=== PATIENT | female | born 1975 | race African-American/Black ===

== ENCOUNTER 2019-07-27 02:33 | Inpatient (IN) | payer OTHER, SELFPAY ==
[2019-07-27] VITALS (17 sets, daily range): BP systolic 113–180; BP diastolic 65–100; PULSE 74–122; RESP 11–21; TEMP 36.4–38.4; O2SAT 93–100; BMI 38.2
--- NOTE | ~2019-07-27 | CT_ITS ---
EXAMINATION: CT abdomen pelvis w con DATE: 07/27/2019 04:15 INDICATION: Right-sided abdominal pain TECHNIQUE: Computed tomography (CT) of the abdomen and pelvis was performed with 100 cc Omnipaque 350 intravenous contrast. The dose-length product was 1246.52 mGy-cm. Automated exposure control and ite rative reconstruction technique were employed. COMPARISON: None. FINDINGS: The appendix is thickened measuring 11 mm with moderate surrounding phlegmonous change, con sistent with acute appendicitis. Appendix located lateral to the cecum. No evidence for perforation. There Lung bases are unremarkable. Heart size normal. No significant pleural or pericardial effusion. Fatty infiltration of the liver. There are gallstones. Spleen is unremarkable. There is accessory splenule s. The pancreas, adrenal glands and kidneys are unremarkable. Nonobstructive bowel gas pattern. There is a dominant right ovarian follicle. No free air. IMPRESSION: 1. Acute uncomplicated appendicitis. 2: Cholelithiasis. Reviewed, dictated and finalized at location A.
--- NOTE | 2019-07-27 02:53 | ED.ABDPAIN ---
HPI - Abdominal Pain General Chief Complaint: Abdominal Pain Stated Complaint: abd pain Time Seen by Provider: 07/27/19 02:46 Source: patient Mode of arrival: ambulatory Limitations: no limitations History of Present Illness HPI narrative: This patient is a 44 year old female who presents for evaluation of lower abominal pain . She states she developed lower abdominal with nausea and vomiting after eating at a restaurant on Sunday night. She describes her pain has cramping like menstrual cycle but worse. She had 2 episodes of vomiting on Sunday and she has continued to have nausea. She had diarrhea on Sunday as well. She has taken pepto bismal without relief of her symptoms. She was thinking it was due to some food she ate but the pain is getting worsen. She denies similar pain in the past. She also denies urinary complaints. MD elicited complaint: abdominal pain Related Data Home Medications Medication Instructions Recorded Confirmed multivitamin [Daily Multi-Vitamin] 1 tablet PO DAILY 07/27/19 07/27/19 Allergies Allergy/AdvReac Type Severity Reaction Status Date / Time No Known Allergies Allergy Verified 06/04/11 14:18 Review of Systems Review of Systems: All systems reviewed & are unremarkable except as noted in HPI and below Constitutional: Constitutional: Denies chills and Denies fever(s) Gastrointestinal: Gastrointestinal: Reports abdominal pain, Reports diarrhea, Reports nausea and Reports vomiting Genitourinary: Genitourinary: Denies hematuria, Denies nocturia and Denies dysuria Neurologic: Reports headache(s) PMFSH Past Medical History Medical History History of ovarian cyst Surgical History Surgical History S/P left oophorectomy Family History Family History Mother Diabetes mellitus Father Hypertension Social History Social History Smoking status: Never smoker Second hand tobacco smoke exposure: No Alcohol intake: unknown Alcohol use details: occasional Substance use: unknown Substance use type: does not use Gender identity (if verbalized by the patient): Female Spiritual care concerns: No Exam Narrative: Exam Narrative: GENERAL: Well-appearing, well-nourished, and in no acute distress. obese HEAD: Normocephalic, atraumatic EYES: PERRLA and EOMI, conjunctiva clear without discharge THROAT:Mucous membranes moist, NECK: Supple, without lymphadenopathy or mass RESPIRATORY: No respiratory distress, Airway patent, Respirations non-labored, Clear to auscultation without rales, rhonchi or wheeze HEART: Regular rate and rhythm. No murmur heard. Normal peripheral pulses. ABDOMEN: Soft,suprapubic and RLQ tenderness, nondistended, normal active bowel sounds. No masses. No rebound or guarding, No organomegaly. EXTREMITIES: No edema, normal strength with full range of motion. SKIN: Warm, dry, normal color without rash NEURO: Alert and oriented x3. CN 2-12 grossly intact. No focal deficits. PSYCH: Normal mood and affect. Course Reevaluation(s) Reevaluation #1: Patient made aware of diagnosis of appendicitis and admission. She last ate at 6 pm yesterday and she last drank at 9 pm last night . Date: 07/27/19 Time: 04:52 Consultations Consultation #1: I discussed case and Dr. Garcias states to admit with pain medication and zosyn. He will see this morning Date: 07/27/19 Time: 04:52 Vital Signs Vital signs: Vital Signs Temperature 98.2 F 07/27/19 02:36 Pulse Rate 122 H 07/27/19 02:36 Respiratory Rate 18 07/27/19 02:36 Blood Pressure 180/100 H 07/27/19 02:36 Pulse Oximetry 96 07/27/19 02:36 Temperature 98.5 F 07/27/19 06:00 Pulse Rate 84 07/27/19 06:00 Respiratory Rate 21 H 07/27/19 06:00 Blood Press
[2019-07-27 02:56] LABS: Basophils Percent Auto 0.2 % (0.2-1.2); Eosinophils Percent Auto 0.2 % (0-4.4); Hemoglobin 12.4 g/dL (12.0-15.0); Immature Granulocyte Absolute 0.06 K/mm3 (0.00-0.031); Immature Granulocyte Percent A 0.5 % (0-0.5); Lymphocytes Absolute Auto 1.93 K/mm3 (0.9-3.2); Lymphocytes Percent Auto 15.5 % (18.3-44.2); Mean Corpuscular HGB Conc 32.6 g/dl (32-36); Mean Corpuscular Hemoglobin 29.1 pg (26-34); Mean Corpuscular Volume 89.2 fl (80-100); Monocytes Absolute Auto 0.7 K/mm3 (0.1-0.6); Monocytes Percent Auto 5.6 % (2.6-8.5); Neutrophils Absolute Auto 9.7 K/mm3 (1.3-6.7); Platelet Count Result 267 k/mm3 (150-375); Red Blood Count 4.26 M/mm3 (4.2-5.4); Red Cell Distribution Width 14.6 % (11.5-14.5); White Blood Count 12.4 K/mm3 (4.5-10.0)
[2019-07-27] MEDS: ONDANSETRON INJ 4 MG/2 ML VIAL IV PUSH (03:00)
[2019-07-27] MEDS: KETOROLAC 30 MG/ML VIAL (*BKC) IV PUSH (03:00)
[2019-07-27 03:08] LABS: Alanine Aminotransferase 19 U/L (4-35); Albumin Level 4.5 g/dL (3.5-5.1); Alkaline Phosphatase 71 U/L (38-126); Aspartate Amino Transferase 20 U/L (14-36); Bilirubin,Total 0.6 mg/dL (0.2-1.3); Blood Urea Nitrogen 10 mg/dL (7-17); Carbon Dioxide 24 mmol/L (22-30); Chloride 103 mmol/L (98-107); Estimated CRCL calculation 130 ml/min; Estimated Glomerular Filt Rate > 60; Glucose 140 mg/dL (65-105); Lipase 95 U/L (23-300); Potassium 3.7 mmol/L (3.4-5.0); Sodium 137 mmol/L (137-145)
[2019-07-27 03:16] LABS: Add Urine Microscopic? YES; Appearance Urine Clear (Clear); Bilirubin Urine Negative (Negative); Blood Urine 1+ (Negative); Color Urine Yellow (Yellow); Glucose Urine UA Negative (Negative); Ketones Urine Negative (Negative); Leukocyte Esterase Ur Negative LEU/UL (Negative); Mucus Urine Heavy /lpf; Nitrate Urine Negative (Negative); Protein Urine 1+ mg/dL (Negative); Squamous Epithelial Cell Urine Many /hpf (Few); Urobilinogen Urine Negative mg/dL (<2.0)
[2019-07-27] MEDS: LACTATED RINGERS 1,000 ML 999 ML IV CONT (03:16)
[2019-07-27 03:18] LABS: Specific Grav Ur 1.032 (1.001-1.035)
[2019-07-27] MEDS: HYDROMORPHONE HCL 1 MG/ML INJ 0.5 MG IV PUSH (04:20)
[2019-07-27] MEDS: LACTATED RINGERS 1,000 ML 125 ML IV CONT (05:47)
--- NOTE | 2019-07-27 05:48 | ADMGEN ---
This patient, Joshua Bragg, was admitted to 2 Medical Room 240-. Patient/family oriented to hospital policies and general routines including ID bracelet, bed and alarms, visiting hours, pain management, procedures, bathroom and other care routines, personal items, smoking policy, room service/diet, and visiting hours. Valuables list has been completed. Information on how to activate the Rapid Response Team has been discussed. Patient/Family are encouraged to report perceived risks to care and to ask questions if they do not understand what they are told or what they should do.
--- NOTE | 2019-07-27 06:19 | PM.IMHP ---
H&P: HPI History of Present Illness Chief complaint: acute appendicitis Narrative: Joshua Bragg is a 44 year old femaleWho began having lower abdominal pain night before last. This was associated with nausea and vomiting. She tried Pepto-Bismol but there was no improvement. The pain did not improve and she came to the emergency room early this morning. There she was noted to have tenderness in the suprapubic area and right lower quadrant. [place] [id number]. She had tachycardia and an elevated blood pressure but no fever. CT scan shows acute appendicitis with an 11 mm appendix and appendicoliths. There is quite a bit of surrounding inflammation. The patient has been admitted and is taken to surgery this morning for laparoscopic appendectomy. She has had a previous open left oophorectomy. She is otherwise healthy. Review of Systems Review of Systems: All systems reviewed & are unremarkable except as noted in HPI and below Constitutional: Constitutional: Denies headache(s) ENT: Denies headache(s) Cardiovascular: Cardiovascular: Denies chest pain and Denies dyspnea Respiratory: Respiratory: Denies cough and Denies dyspnea Gastrointestinal: Gastrointestinal: Denies bloating, Denies constipation and Denies nausea Neurologic: Denies confusion and Denies headache(s) Psychiatric: Psychiatric: Denies confusion PMFSH Past Medical History Medical History History of ovarian cyst Surgical History Surgical History S/P left oophorectomy Family History Family History Mother Diabetes mellitus Father Hypertension Social History Social History Smoking status: Never smoker Second hand tobacco smoke exposure: No Alcohol intake: unknown Alcohol use details: occasional Substance use: unknown Substance use type: does not use Gender identity (if verbalized by the patient): Female Spiritual care concerns: No Meds Home Medications and Allergies Home Medications Medication Instructions Recorded Confirmed Type multivitamin [Daily Multi-Vitamin] 1 tablet PO DAILY 07/27/19 07/27/19 History Allergies Allergy/AdvReac Type Severity Reaction Status Date / Time No Known Allergies Allergy Verified 06/04/11 14:18 Vital Signs Vital Signs - 24 hr 07/27/19 02:36 07/27/19 04:23 07/27/19 05:15 Temperature 36.8 C Pulse Rate 122 H 96 87 Respiratory Rate 18 18 18 Blood Pressure 180/100 H 154/88 H 150/90 H Pulse Oximetry 96 100 100 07/27/19 06:00 Temperature 36.9 C Pulse Rate 84 Respiratory Rate 21 H Blood Pressure 131/77 Pulse Oximetry 100 Exam Const: General: cooperative, comfortable, no acute distress, alert and awake; No confusion Orientation/consciousness: No confusion HENMT: Head: normocephalic, atraumatic, no contusions and no scalp lesions Ears: external ears normal General nose exam: Normal external nose present Face and sinus: face symmetric and dry mucous membranes Mouth: Yes Normal oral and palatal mucosa present and Yes tongue normal Throat: posterior oropharynx normal Eyes: Conjunctivae: conjunctivae normal Sclera: sclerae normal Pupils: Equal, round and reactive pupils present EOM: EOMs intact bilaterally Neck: Neck: normal visual inspection, no lymphadenopathy, trachea midline, supple, nontender and no JVD Thyroid: abnormal thyroid Resp: Effort & Inspection: normal respiratory effort Auscultation: clear to auscultation bilaterally Cardio: Rate: regular rate Rhythm: regular rhythm GI: Inspection: normal to inspection, obesity and scar (lower abdominal midline scar) GI Palp: Yes Soft to palpation, Yes Tenderness to palpation present (GI) ( right lower quadrant and suprapubic area), Yes Guarding due to palpation prese
--- NOTE | 2019-07-27 06:21 | WPDANESEPP ---
Anes - Eval Pre Procedure Procedure: Laparoscopic Appendectomy Date/Time: 07/27/19 06:21 Surgeon: Dieter Preop Diagnosis: Acute Appendicitis Pre Op Diagnosis: acute appendicitis Patient Data Age: 44 Gender: F Height: 1.68 m Weight: 107.3 kg Last Vital Signs Temp 36.9 C 07/27/19 06:00 Pulse 84 07/27/19 06:00 Resp 21 H 07/27/19 06:00 BP 131/77 07/27/19 06:00 Pulse Ox 100 07/27/19 06:00 Allergies Allergy/AdvReac Type Severity Reaction Status Date / Time No Known Allergies Allergy Verified 06/04/11 14:18 Home Medications Medication Instructions Recorded Confirmed Type multivitamin [Daily Multi-Vitamin] 1 tablet PO DAILY 07/27/19 07/27/19 History Laboratory Tests 07/27/19 07/27/19 07/27/19 02:47 02:47 02:54 WBC 12.4 K/mm3 H K/mm3 (4.5-10.0) RBC 4.26 M/mm3 M/mm3 (4.2-5.4) Hgb 12.4 g/dL g/dL (12.0-15.0) Hct 38.0 % % (37.0-47.0) MCV 89.2 fl fl (80-100) MCH 29.1 pg pg (26-34) MCHC 32.6 g/dl g/dl (32-36) RDW 14.6 % H % (11.5-14.5) Plt Count 267 k/mm3 k/mm3 (150-375) MPV 10.0 fl fl (7.4-10.4) Immature Gran % (Auto) 0.5 % % (0-0.5) Neut % (Auto) 78.0 % H % (45.5-73.1) Lymph % (Auto) 15.5 % L % (18.3-44.2) [place] % (Auto) 5.6 % % (2.6-8.5) Eos % (Auto) 0.2 % % (0-4.4) Baso % (Auto) 0.2 % % (0.2-1.2) Lymph # (Auto) 1.93 K/mm3 K/mm3 (0.9-3.2) [place] # (Auto) 0.7 K/mm3 H K/mm3 (0.1-0.6) Eos # (Auto) 0.0 K/mm3 K/mm3 (0-0.3) Baso # (Auto) 0.0 K/mm3 K/mm3 (0.0-0.1) Abs Immat Gran (auto) 0.06 K/mm3 H K/mm3 (0.00-0.031) Absolute Neuts (auto) 9.7 K/mm3 H K/mm3 (1.3-6.7) Absolute Nucleated RBC 0.0 K/mm3 K/mm3 (0.0-0.012) Nucleated RBC % 0.0 % % (0.0-0.2) Sodium 137 mmol/L mmol/L (137-145) Potassium 3.7 mmol/L mmol/L (3.4-5.0) Chloride 103 mmol/L mmol/L (98-107) Carbon Dioxide 24 mmol/L mmol/L (22-30) BUN 10 mg/dL mg/dL (7-17) Creatinine 0.60 mg/dL L mg/dL (0.7-1.0) Estim Creat Clear Calc 130 ml/min ml/min Estimated GFR > 60 (59 - ) Glucose 140 mg/dL H mg/dL (65-105) Calcium 9.0 mg/dL mg/dL (8.4-10.2) Total Bilirubin 0.6 mg/dL mg/dL (0.2-1.3) AST 20 U/L U/L (14-36) ALT 19 U/L U/L (4-35) Alkaline Phosphatase 71 U/L U/L (38-126) Total Protein 9.0 g/dL H g/dL (6.3-8.2) Albumin 4.5 g/dL g/dL (3.5-5.1) Lipase 95 U/L U/L (23-300) Urine Color Yellow (Yellow) Urine Appearance Clear (Clear) Urine pH 5.0 (5.0-9.0) Ur Specific [place] 1.032 (1.001-1.035) Urine Protein 1+ mg/dL H mg/dL (Negative) Urine Glucose (UA) Negative mg/dL mg/dL (Negative) Urine Ketones Negative mg/dL mg/dL (Negative) Ur Blood (Man) 1+ H (Negative) Urine Nitrate Negative (Negative) Urine Bilirubin Negative (Negative) Urine Urobilinogen Negative mg/dL mg/dL (<2.0) Leukocyte Esterase Rfl Negative CINDY/UL CINDY/UL (Negative) Urine RBC 3-5 /hpf H /hpf (0-2) Urine WBC 4-6 /hpf H /hpf Ur Squamous Epith Cells Many /hpf H /hpf (Few) Urine Mucus Heavy /lpf H /lpf Patient hx anesthesia problems: none Family hx anesthesia problems: none [facility] Past Medical History Medical History History of ovarian cyst Surgical History Surgical History S/P left oophorectomy Family History Family History Mother Diabetes mellitus Father
--- NOTE | 2019-07-27 07:21 | PC.NURSE ---
To OR per [bed ], IV [20 left ac locked off. Consent printed for surgery pt nervous wanting explanation of procedure. Explained to surgery consent to be signed with OR nurse. ]
[2019-07-27] MEDS: LACTATED RINGERS 1,000 ML 30 ML IV CONT ×2 (07:30→08:56)
--- NOTE | 2019-07-27 07:30 | PM.PROC ---
Procedure Note - Detailed Date of procedure: 07/27/19 Pre-op diagnosis: acute appendicitis acute appendicitis Post-op diagnosis: other (Ruptured gangrenous appendicitis) Procedure performed: Laparoscopic appendectomy for ruptured appendicitis Description of procedure: The patient was taken to surgery and induced into general anesthesia. The abdomen was prepped and draped. Trocars were placed in the usual fashion using 0.5% Marcaine with epinephrine and applied Medical optical trocars. A 5 mm camera was used. There were numerous anterior abdominal wall adhesions of omentum from patient's previous surgery and some congenital adhesions. These were taken down sharply before we could start the appendectomy. Minimal cautery was used. Adhesions to the falciform ligament and upper abdomen were noted and taken down as well. This gave us good access to the right lower quadrant and cecum. The patient was placed in Trendelenburg with the right side elevated. The appendix was found but it was walled off and very inflamed. It was obviously gangrenous. During the dissection it was evident there was a micro perforation as some fluid came out of the appendix. I had to put an extra 5 mm port in the right upper quadrant. We placed the camera there as this gave better visualization. I scored the retroperitoneum so that I could mobilize the appendix. I then scored the peritoneum encasing most of the appendix with the cautery. I then gently lifted the tip of the appendix and used primarily blunt dissection to elevate it from the ascending colon mesentery that had walled it off. This came off fairly easily although again I saw an area in the mid appendix where there was evidence of rupture and a small amount of fluid leaking from the appendix that appeared primarily bloody. Cautery was used for hemostasis. The suction was used liberally to keep any spillage to a minimum. No more than a cc or 2 of drainage from the appendix occurred during the operation. Eventually I mobilized the appendix completely to its base. The mesoappendix was dissectedand the appendiceal vessels cauterized for hemostasis. Eventually the base of the appendix was skeletonized. The appendix was ligated at its base with a Vicryl endo-loop. It was amputated just above the ligature and the mucosa of the appendiceal stump was cauterized. The appendix was immediately placed in an Endo-Catch bag and retrieved through the 10 11 left lower quadrant trocar site. We replaced the 10 11 trocar and reviewed the right lower quadrant and areas of dissection. I then suctioned and reviewed the area where the appendix had been walled off. I suction any residual bloody fluid and clot. I then irrigated the area repeatedly with saline and suctioned it dry. This process was repeated several times until I was satisfied there was no bleeding and all was as clean as I could make it. I then reviewed the areas of the adhesiolysis of omentum. There was minimal clock from this and all looked good. There was no active bleeding. I again recheck the appendiceal stump and the bed that had walled off the appendix. All looked good with no evidence of bleeding or other problems. We evacuated CO2 and removed the trocar sleeves. Skin wounds were closed with subcuticular 4 O Monocryl skin suture. The wounds were dressed with Exofin surgical adhesive. The patient was awakened and taken to recovery in good condition. Sponge and needle counts were correct x2. Anesthesia: GETA and local (0.5% Marcaine with epinephrine) Surgeon: Roland Garcias MD Permanent Waver: Gilbert BOND Estimated blood loss (mL): 20 Drains: No Packing: No Pathology: yes (Gangrenous ruptured appendix) Complications: None Condition: stable Disposition: PACU Findings: Acute gangrenous appendicitis with ruptured appendix. Walled off but no abscess. Intra-abdominal adhesions of omentum.
--- NOTE | 2019-07-27 07:31 | WPDANESEFPP ---
Anes - Eval Final PreProcedure Day of Procedure 07/27/19 07:31 Patient weight: obese Heart: regular rate and rhythm Lungs: clear to auscultation Airway: Mallampati scale class II Neurological: alert and oriented Last oral intake: >/= 8 hours ASA classification: II Anesthetic plan: proceed Anesthesia type and monitoring: general ETT and standard monitoring Informed Consent: The patient's anesthetic plan and its attendant risks and benefits were discussed with the patient/family/POA. Questions were solicited and answers provided to the satisfaction of the patient/family/POA.
--- NOTE | 2019-07-27 07:35 | PM.DS ---
DS: Admitting Diagnosis Admitting Diagnosis Admitting Diagnosis: Acute appendicitis with localized peritonitis, without perforation or gangrene DS: Discharge Diagnosis Discharge Diagnosis (1) Acute appendicitis with rupture: Onset Date: 07/25/19 Code(s): K35.32 - Acute appendicitis with perforation and localized peritonitis, without abscess Status: Acute (2) Obesity (BMI 35.0-39.9 without comorbidity): Code(s): E66.9 - Obesity, unspecified Status: Chronic (3) Cholelithiasis: Qualifiers: Biliary obstruction: without biliary obstruction Cholecystitis presence: without cholecystitis Cholelithiasis location: gallbladder Qualified Code(s): K80.20 - Calculus of gallbladder without cholecystitis without obstruction Code(s): K80.20 - Calculus of gallbladder without cholecystitis without obstruction Status: Chronic Assessment and Plan: Asymptomatic stones in gallbladder noted on CT scan. discussed findings with patient. No indication for cholecystectomy as these are asymptomatic. DS: Summary Time Spent with Patient Time attestation: Total time spent providing and/or coordinating discharge services: Patient presented to the emergency room with a 36 hour history of lower abdominal pain nausea and vomiting. She was found to have tenderness in the right lower quadrant [place] [address] scan showed evidence of acute appendicitis with appendicoliths. This was early in the morning on 07/27/2019. Patient was started on Zosyn antibiotics. She was taken to surgery on the morning of 07/[address] Garcias. Laparoscopic appendectomy was performed. She was found to have a gangrenous ruptured appendix that was pretty well walled off. Patient had fever to 38.4? centigrade the night after surgery. She was kept in the hospital and IV antibiotics were continued. She was still quite tender on postop day 2. And requiring analgesics. She also had a bad headache. By postop day 3., she was feeling much better. She was having minimal abdominal pain or tenderness. Her white count was normal. She was comfortable on oral analgesics and able to be discharged on oral antibiotics. Exam GI: Inspection: non-distended and incision ( All trocar sites healing well) GI Palp: Yes Soft to palpation, Yes Tenderness to palpation present (GI) ( minimal incisional tenderness), No Guarding due to palpation present (GI), No Hernia present, No Palpable mass present and No Rebound tenderness present Auscultation: normal bowel sounds DS: Data Data Completed and Pending Labs on day of discharge: Labs from last 24 hours 07/27/19 07/27/19 07/27/19 02:54 02:47 02:47 WBC 12.4 H RBC 4.26 Hgb 12.4 Hct 38.0 MCV 89.2 MCH 29.1 MCHC 32.6 RDW 14.6 H Plt Count 267 MPV 10.0 Immature Gran % (Auto) 0.5 Neut % (Auto) 78.0 H Lymph % (Auto) 15.5 L [place] % (Auto) 5.6 Eos % (Auto) 0.2 Baso % (Auto) 0.2 Lymph # (Auto) 1.93 [place] # (Auto) 0.7 H Eos # (Auto) 0.0 Baso # (Auto) 0.0 Abs Immat Gran (auto) 0.06 H Absolute Neuts (auto) 9.7 H Absolute Nucleated RBC 0.0 Nucleated RBC % 0.0 Sodium 137 Potassium 3.7 Chloride 103 Carbon Dioxide 24 BUN 10 Creatinine 0.60 L Estim Creat Clear Calc 130 Estimated GFR > 60 Glucose 140 H Calcium 9.0 Total Bilirubin 0.6 AST 20 ALT 19 Alkaline Phosphatase 71 Total Protein 9.0 H Albumin 4.5 Lipase 95 Urine Color Yellow Urine Appearance Clear Urine pH 5.0 Ur Specific [place] 1.032 Urine Protein 1+ H Urine Glucose (UA) Negative Urine Ketones Negative Ur Blood (Man) 1+ H Urine Nitrate Negative Urine Bilirubin Negative Urine Urobilinogen Negative Leukocyte Esterase Rfl Negative Urine RBC 3-5 H Urine WBC 4-6 H Ur Squamous Epith Cells Many H Urine Mucus Heavy H Discharge Plan Dischar
[2019-07-27] MEDS: BUPIVACAINE/EPINEPHRINE 0.5% 10 ML VIAL 20 ML INFILTRATE (08:11)
[2019-07-27] MEDS: LACTATED RINGERS 1,000 ML 80 ML IV CONT ×2 (10:30→22:27)
--- NOTE | 2019-07-27 10:53 | PC.NURSE ---
Returned from OR per bed. Introduced myself to the patient and gave the patient the call light. Patient is resting comfortably.
[2019-07-27] MEDS: ACETAMINOPHEN 500 MG TABLET PO (18:46)
[2019-07-27] MEDS: FAMOTIDINE 20 MG/2 ML VIAL IV PUSH (20:05)
[2019-07-27] MEDS: ENOXAPARIN 30 MG/0.3 ML SYRINGE SUB-Q (20:12)
[2019-07-28 02:27] VITALS: BP 138/68; PULSE 106; RESP 16; TEMP 37.2; O2SAT 97
[2019-07-28 05:18] LABS: Hematocrit 29.6 % (37.0-47.0); Hemoglobin 9.6 g/dL (12.0-15.0); Mean Corpuscular HGB Conc 32.4 g/dl (32-36); Mean Corpuscular Hemoglobin 29.2 pg (26-34); Mean Platelet Volume 10.7 fl (7.4-10.4); Platelet Count Result 205 k/mm3 (150-375); Red Blood Count 3.29 M/mm3 (4.2-5.4); Red Cell Distribution Width 14.6 % (11.5-14.5); White Blood Count 8.9 K/mm3 (4.5-10.0)
[2019-07-28 05:33] LABS: Blood Urea Nitrogen 8 mg/dL (7-17); Calcium 8.3 mg/dL (8.4-10.2); Carbon Dioxide 28 mmol/L (22-30); Chloride 105 mmol/L (98-107); Estimated CRCL calculation 125 ml/min; Estimated Glomerular Filt Rate > 60; Glucose 112 mg/dL (65-105); Potassium 3.6 mmol/L (3.4-5.0); Sodium 136 mmol/L (137-145)
[2019-07-28 06:38] VITALS: BP 145/75; PULSE 89; RESP 20; TEMP 36.9; O2SAT 95
--- NOTE | 2019-07-28 07:34 | WPDANESPN ---
Anes - Prog Note Post-Op Date/Time: 07/28/19 07:34 Cardiovascular status: normal Respiratory status: normal Airway patency: baseline Mental status: baseline Post-Op hydration status: normal Vital Signs: Last Vital Signs Temp 36.9 C 07/28/19 06:38 Pulse 89 07/28/19 06:38 Resp 20 07/28/19 06:38 BP 145/75 H 07/28/19 06:38 Pulse Ox 95 07/28/19 06:38 I/O: Intake & Output 07/27/19 07/27/19 07/28/19 15:59 23:59 07:59 Intake Total 950 1450 500 Output Total 200 750 Balance 950 1250 -250 Laboratory Tests 07/28/19 04:49 07/28/19 04:49 07/28/19 07/28/19 04:49 04:49 WBC 8.9 RBC 3.29 L Hgb 9.6 L Hct 29.6 L MCV 90.0 MCH 29.2 MCHC 32.4 RDW 14.6 H Plt Count 205 MPV 10.7 H Sodium 136 L Potassium 3.6 Chloride 105 Carbon Dioxide 28 BUN 8 Creatinine 0.60 L Estim Creat Clear Calc 125 Estimated GFR > 60 Glucose 112 H Calcium 8.3 L Post-procedural complaints: none Patient Feedback: Patient satisfied with anesthetic care.
[2019-07-28] MEDS: ENOXAPARIN 30 MG/0.3 ML SYRINGE SUB-Q ×2 (08:12→21:08)
[2019-07-28] MEDS: FAMOTIDINE 20 MG/2 ML VIAL IV PUSH ×2 (08:13→21:09)
--- NOTE | 2019-07-28 11:56 | PM.PNGS ---
Progress Note: A&P Assessment and Plan (1) Acute appendicitis with rupture: Onset Date: 07/25/19 Code(s): K35.32 - Acute appendicitis with perforation and localized peritonitis, without abscess Status: Acute Assessment and Plan: patient improving. She did have a fever to 38.4? centigrade about 6 last evening. Continue hospital care with IV antibiotics. Will advance diet slowly. Increase activity. Recheck labs and exam again in a.m.. Subjective Subjective Date/Time Seen: 07/28/19 06:56 Post Op day: 1 Patient reports: still having pain, tolerating liquids well, voiding w/o difficulty, no bowel movement and fever Review of Systems Review of Systems: All systems reviewed & are unremarkable except as noted in HPI and below ( HPI) Exam Const: General: comfortable and no acute distress; No confusion Orientation/consciousness: patient oriented x3 and No confusion GI: Inspection: non-distended and incision ( all incisions healing well) GI Palp: Yes Soft to palpation, Yes Tenderness to palpation present (GI) ( appropriate incisional tenderness and some right lower quadrant tenderness) and Yes Guarding due to palpation present (GI) Auscultation: normal bowel sounds Neuro: General: patient oriented x3, no focal motor deficits and No confusion Extrem: General: no calf tenderness and no edema Psych: Affect: normal affect Insight: Good insight present (Psych) Judgement: Good judgement present (Psych) Objective Data Vital Signs Vital Signs: Vital Signs - 24 hr 07/27/19 12:05 07/27/19 14:00 07/27/19 18:00 Temperature 37.0 C 36.6 C 38.4 C H Pulse Rate 91 104 H 116 H Respiratory Rate 18 16 18 Blood Pressure 147/80 H 137/83 153/89 H Pulse Oximetry 98 98 99 07/27/19 18:46 07/27/19 21:39 07/28/19 02:27 Temperature 38.4 C H 37.9 C H 37.2 C Pulse Rate 117 H 106 H Respiratory Rate 16 16 Blood Pressure 149/73 H 138/68 Pulse Oximetry 96 97 07/28/19 06:38 Temperature 36.9 C Pulse Rate 89 Respiratory Rate 20 Blood Pressure 145/75 H Pulse Oximetry 95 Intake/Output Intake/Output: Intake & Output 07/25/19 07/26/19 07/27/19 07/28/19 23:59 23:59 23:59 23:59 Intake Total 3450 740 Output Total 200 750 Balance 3250 -10 Meds/Results Medications: Active Medications Generic Name Dose Route Start Last Admin Trade Name Freq PRN Reason Stop Dose Admin Acetaminophen 500 mg 07/27/19 10:03 07/27/19 18:46 Tylenol Tablet PO 500 mg Q6H PRN Administration Mild Pain (1-3) or Fever Hydrocodone Bitart/Acetaminophen 1 tab 07/27/19 10:03 07/27/19 18:02 [place] 5-325 Mg PO 1 tab Q4H PRN Administration Pain Rated 4-6 Hydrocodone Bitart/Acetaminophen 1 tab 07/27/19 10:03 07/28/19 09:49 [place] 10-325 Mg PO 1 tab Q4H PRN Administration Pain Rated 7-10 Enoxaparin Sodium 30 mg 07/27/19 21:00 07/28/19 08:12 Lovenox SUB-Q 30 mg Q12HR NICHOLAS Administration Famotidine 20 mg 07/27/19 21:00 07/28/19 08:13 Pepcid Iv IV PUSH 20 mg Q12HR NICHOLAS Administration Lactated Ringer's 1,000 mls @ 80 mls/hr 07/27/19 10:03 07/27/19 22:27 Lr - Lactated Ringers Iv IV CONT 80 mls/hr .[id number] NICHOLAS Administration Ibuprofen 400 mg/ Sodium 104 mls @ 200 mls/hr 07/27/19 10:03 Chloride IVPB Q6H PRN Pain Rated 1-3 Piperacillin/Tazobactam/Dextrose 3.375 gm in 50 mls @ 100 mls/hr 07/27/19 12:00 07/28/19 05:35 Zosyn 3.375 Gm/D5w 50ml Pm IVPB Infused Q6HR NICHOLAS Infusion Morphine Sulfate 1 mg 07/27/19 10:03 Morphine Sulfate Inj IV PUSH Q2H PRN Pain Rated 4-6 Morphine Sulfate 2 mg 07/27/19 10:03 Morphine Sulfate Inj IV PUSH Q2H PRN Pain Rated 7-10 Naloxone HCl 0.1 mg 07/27/19 10:03 Narcan IV PUSH Q2M PRN Opiate Reversal Ondansetron HCl 4 mg 07/27/19 10:03 Zofran Inj IV PUSH Q4H PRN Nausea And Vomiting Radiology Results: ITS Impressions Abdomen/Pelvi
[2019-07-28] MEDS: LACTATED RINGERS 1,000 ML 80 ML IV CONT (12:57)
[2019-07-28 14:00] VITALS: BP 149/82; PULSE 110; RESP 15; TEMP 37.5; O2SAT 95
--- NOTE | 2019-07-28 14:39 | PCCCNOTE ---
On 07/28/19, the student, [Mary Ann Eason], provided care and completed [facility] on [facility]. I have reviewed the student's documentation and agree with the findings.
[2019-07-28] MEDS: ACETAMINOPHEN 500 MG TABLET PO (20:37)
[2019-07-28 22:00] VITALS: BP 111/58; PULSE 105; RESP 18; TEMP 36.8; O2SAT 97
[2019-07-29] MEDS: LACTATED RINGERS 1,000 ML 80 ML IV CONT (04:39)
[2019-07-29 06:00] VITALS: BP 140/75; PULSE 103; RESP 18; TEMP 37.6; O2SAT 96
--- NOTE | 2019-07-29 07:37 | PM.PNGS ---
Progress Note: A&P Assessment and Plan (1) Acute appendicitis with rupture: Onset Date: 07/25/19 Code(s): K35.32 - Acute appendicitis with perforation and localized peritonitis, without abscess Status: Acute Assessment and Plan: still pretty tender and uncomfortable. Continue IV the antibiotics and inpatient care. If continues to improve probably can go home tomorrow. Labs are pending from today. (2) Headache: Code(s): R51 - Headache Status: Acute Assessment and Plan: Will order BC Powder which patient takes at home. Subjective Subjective Date/Time Seen: 07/29/19 07:37 Post Op day: 2 Patient reports: tolerating liquids well ( Minced and moist diet), bowel movement, afebrile ( no fever yesterday) and other ( complains of a headache, takes BC Powder for this at home.) Review of Systems Review of Systems: All systems reviewed & are unremarkable except as noted in HPI and below Constitutional: Constitutional: Reports headache(s) Cardiovascular: Cardiovascular: Denies chest pain and Denies dyspnea Respiratory: Respiratory: Denies cough and Denies dyspnea Gastrointestinal: Gastrointestinal: Reports as per HPI Exam Const: General: comfortable and no acute distress; No confusion Orientation/consciousness: patient oriented x3 and No confusion GI: Inspection: non-distended, incision ( all incisions healing well) and obesity GI Palp: Yes Soft to palpation, Yes Tenderness to palpation present (GI) ( still very tender right lower quadrant) and Yes Guarding due to palpation present (GI) Auscultation: normal bowel sounds Neuro: General: patient oriented x3, no focal motor deficits and No confusion Psych: Affect: normal affect Insight: Good insight present (Psych) Judgement: Good judgement present (Psych) Objective Data Vital Signs Vital Signs: Vital Signs - 24 hr 07/28/19 14:00 07/28/19 22:00 Temperature 37.5 C 36.8 C Pulse Rate 110 H 105 H Respiratory Rate 15 18 Blood Pressure 149/82 H 111/58 L Pulse Oximetry 95 97 Intake/Output Intake/Output: Intake & Output 07/26/19 07/27/19 07/28/19 07/29/19 23:59 23:59 23:59 23:59 Intake Total 3450 2620 1100 Output Total 200 1500 Balance 3250 1120 1100 Meds/Results Medications: Active Medications Generic Name Dose Route Start Last Admin Trade Name Freq PRN Reason Stop Dose Admin Acetaminophen 500 mg 07/27/19 10:03 07/28/19 20:37 Tylenol Tablet PO 500 mg Q6H PRN Administration Mild Pain (1-3) or Fever Hydrocodone Bitart/Acetaminophen 1 tab 07/27/19 10:03 07/27/19 18:02 [place] 5-325 Mg PO 1 tab Q4H PRN Administration Pain Rated 4-6 Hydrocodone Bitart/Acetaminophen 1 tab 07/27/19 10:03 07/28/19 15:29 [place] 10-325 Mg PO 1 tab Q4H PRN Administration Pain Rated 7-10 Bc Powder 845 pkg/ 845 mg 0 each 07/29/19 07:29 aspirin and 65 mg caffeine per BY MOUTH 08/28/19 07:31 each powder 1 pkg Q6H PRN Headache Enoxaparin Sodium 30 mg 07/27/19 21:00 07/28/19 21:08 Lovenox SUB-Q 30 mg Q12HR NICHOLAS Administration Famotidine 20 mg 07/27/19 21:00 07/28/19 21:09 Pepcid Iv IV PUSH 20 mg Q12HR NICHOLAS Administration Lactated Ringer's 1,000 mls @ 80 mls/hr 07/27/19 10:03 07/29/19 04:39 Lr - Lactated Ringers Iv IV CONT 80 mls/hr .[id number] NICHOLAS Administration Ibuprofen 400 mg/ Sodium 104 mls @ 200 mls/hr 07/27/19 10:03 Chloride IVPB Q6H PRN Pain Rated 1-3 Piperacillin/Tazobactam/Dextrose 3.375 gm in 50 mls @ 100 mls/hr 07/27/19 12:00 07/29/19 07:00 Zosyn 3.375 Gm/D5w 50ml Pm IVPB Infused Q6HR NICHOLAS Infusion Morphine Sulfate 1 mg 07/27/19 10:03 Morphine Sulfate Inj IV PUSH Q2H PRN Pain Rated 4-6 Morphine Sulfate 2 mg 07/27/19 10:03 Morphine Sulfate Inj IV PUSH Q2H PRN Pain Rated 7-10 Naloxone HCl 0.1 mg 07/27/19 10:03 Narcan IV PUSH Q2M PRN Opiate Reversal Onda
--- NOTE | 2019-07-29 08:17 | PHAR ---
Home med BC powder packets seen in pharmacy and returned to [facility] nursing unit
[2019-07-29] MEDS: ENOXAPARIN 30 MG/0.3 ML SYRINGE SUB-Q ×2 (08:34→21:44)
[2019-07-29] MEDS: FAMOTIDINE 20 MG TABLET PO ×2 (08:34→21:44)
[2019-07-29 14:00] VITALS: BP 145/81; PULSE 88; RESP 15; TEMP 36.7; O2SAT 97
[2019-07-29 20:24] VITALS: BP 153/77; PULSE 98; RESP 18; TEMP 36.9; O2SAT 100
[2019-07-30 06:00] VITALS: BP 139/67; PULSE 80; RESP 20; TEMP 36.6; O2SAT 100
[2019-07-30 06:23] LABS: Hematocrit 30.4 % (37.0-47.0); Hemoglobin 9.9 g/dL (12.0-15.0); Mean Corpuscular HGB Conc 32.6 g/dl (32-36); Mean Corpuscular Hemoglobin 28.6 pg (26-34); Mean Corpuscular Volume 87.9 fl (80-100); Platelet Count Result 230 k/mm3 (150-375); Red Blood Count 3.46 M/mm3 (4.2-5.4); Red Cell Distribution Width 14.5 % (11.5-14.5); White Blood Count 5.6 K/mm3 (4.5-10.0)
[2019-07-30 06:42] LABS: Blood Urea Nitrogen 7 mg/dL (7-17); Calcium 8.4 mg/dL (8.4-10.2); Carbon Dioxide 29 mmol/L (22-30); Chloride 104 mmol/L (98-107); Estimated CRCL calculation 125 ml/min; Estimated Glomerular Filt Rate > 60; Glucose 96 mg/dL (65-105); Potassium 3.5 mmol/L (3.4-5.0); Sodium 138 mmol/L (137-145)
[2019-07-30] MEDS: ENOXAPARIN 30 MG/0.3 ML SYRINGE SUB-Q (08:04)
[2019-07-30] MEDS: FAMOTIDINE 20 MG TABLET PO (08:04)
== END 2019-07-30 11:41 | disposition home or self-care (01) | DRG 340 ==
LOC: ANHED 04:55 → ANH2MED 07:35
PROVIDERS: Admitting Provider Surgery; Emergency Provider General Practice; Visit Provider Surgery
PROC: 0DTJ4ZZ Resection of Appendix, Percutaneous Endoscopic Approach (ICD-10-PCS; CPT 44970; principal; 2019-07-27 07:30)
DX: K35.32 Acute appendicitis with perforation, localized peritonitis, and gangrene, without abscess (principal); R51 Headache; K80.20 Calculus of gallbladder without cholecystitis without obstruction; E66.9 Obesity, unspecified; Z68.38 Body mass index [BMI] 38.0-38.9, adult; Z90.721 Acquired absence of ovaries, unilateral
CPT/HCPCS: 36415; 74177; 80048; 80053; 81001; 81025; 83690; 85025; 85027; 88304; 96361; 96365; 96375; 99285; A9270; J0131; J0330; J1100; J1170; J1650; J1885; J2250; J2405; J2543; J2704; J2710; J3010; J7030; J7120; Q9967

== ENCOUNTER 2019-08-15 10:00 | Outpatient (CLI) | payer OTHER, SELFPAY ==
[2019-08-15 10:56] LABS: Basophils Percent Auto 0.6 % (0.2-1.2); Eosinophils Absolute Auto 0.1 K/mm3 (0-0.3); Eosinophils Percent Auto 0.8 % (0-4.4); Hematocrit 33.8 % (37.0-47.0); Hemoglobin 10.9 g/dL (12.0-15.0); Immature Granulocyte Absolute 0.03 K/mm3 (0.00-0.031); Immature Granulocyte Percent A 0.4 % (0-0.5); Lymphocytes Absolute Auto 2.13 K/mm3 (0.9-3.2); Mean Corpuscular HGB Conc 32.2 g/dl (32-36); Mean Corpuscular Hemoglobin 28.4 pg (26-34); Mean Platelet Volume 9.9 fl (7.4-10.4); Monocytes Absolute Auto 0.5 K/mm3 (0.1-0.6); Monocytes Percent Auto 6.9 % (2.6-8.5); Neutrophils Absolute Auto 4.4 K/mm3 (1.3-6.7); Neutrophils Percent Auto 61.3 % (45.5-73.1); Platelet Count Result 335 k/mm3 (150-375); Red Blood Count 3.84 M/mm3 (4.2-5.4); Red Cell Distribution Width 14.6 % (11.5-14.5); White Blood Count 7.1 K/mm3 (4.5-10.0)
== END 2019-08-15 10:01 | disposition home or self-care (01) ==
LOC: ANHLAB 10:02
PROVIDERS: Visit Provider Nurse Practitioner Family
DX: K35.30 Acute appendicitis with localized peritonitis, without perforation or gangrene (principal)
CPT/HCPCS: 36415; 85025

== ENCOUNTER → 2019-12-18 18:10 | Outpatient (CLI) | payer OTHER, SELFPAY ==
--- NOTE | ~2019-12-18 | MM_ITS ---
EXAMINATION: MM screening [facility] BI w crystal HISTORY: Screening mammogram TECHNIQUE: Craniocaudal and mediolateral oblique 3-D tomosynthesis images were obtained and synthetic 2-D images were generated. CAD analysis was submitted and interpreted. COMPARISON: 02/14/2018 BREAST PARENCHYMAL COMPOSITION: There are scattered areas of fibroglandular density. FINDINGS: There is no evidence of suspicious mass, calcification, or architectural distortion to sugg est malignancy in either breast. There has been no suspicious interval change. IMPRESSION: 1. No mammographic evidence of malignancy. 2. Recommend routine screening mammography in one year. BI-RADS Category 1: Negative Reviewed, dictated and finalized at location A. INERY RIGGER
== END ==
PROVIDERS: Visit Provider Obstetrics & Gynecology
DX: Z12.31 Encounter for screening mammogram for malignant neoplasm of breast (principal)
CPT/HCPCS: 77063; 77067

== ENCOUNTER 2021-07-07 17:37 | Emergency (ER) | payer OTHER, SELFPAY ==
[2021-07-07 17:50] VITALS: BP 133/83; PULSE 97; RESP 16; TEMP 37; O2SAT 100
--- NOTE | 2021-07-07 17:56 | ED.GENADULT ---
HPI - General Adult General Chief complaint: Extremity Injury, Upper Stated complaint: Thumb Pain Time Seen by Provider: 07/07/21 17:56 Source: patient and RN notes reviewed Mode of arrival: ambulatory Limitations: no limitations History of Present Illness HPI narrative: 46-year-old female presents to the [facility] with complaints of swelling, fluctuance to the right thumb distal aspect. States that she tried to give herself a home Medicare and the swelling, redness, warmth developed a couple of days ago. No treatment prior to arrival. Full range of motion of all joints. Sensation intact distal to swelling capillary refill under 2 seconds Related Data Home Medications Medication Instructions Recorded Confirmed multivitamin (Daily Multi-Vitamin 1 tablet PO DAILY 07/27/19 07/07/21 tablet) lisinopril 20 1 tablet PO DAILY 07/07/21 07/07/21 mg-hydrochlorothiazide 12.5 mg tablet metformin 500 mg tablet 1 tablet PO BID 07/07/21 07/07/21 Allergies Allergy/AdvReac Type Severity Reaction Status Date / Time No Known Allergies Allergy Verified 07/07/21 17:52 Review of Systems Review of Systems: All systems reviewed & are unremarkable except as noted in HPI and below Constitutional: Constitutional: Reports no additional constitutional complaints, Denies chills and Denies fever(s) Eyes: Eyes: Reports no additional eye complaints ENT: Reports system reviewed and no additional complaints, except as documented Cardiovascular: Cardiovascular: Reports no additional cardiovascular complaints Respiratory: Respiratory: Reports no additional respiratory complaints Gastrointestinal: Gastrointestinal: Reports no additional gastrointestinal complaints Musculoskeletal: Musculoskeletal: Reports no additional musculoskeletal complaints Integumentary/Breasts: Skin/Breast: Reports as per HPI and Reports erythema Neurologic: Reports system reviewed and no additional complaints, except as documented Psychiatric: Psychiatric: Reports no additional psychiatric complaints Allergic/Immunologic: Allergic/Immunologic: Reports no additional allergic/immunologic complaints [facility] Past Medical History Medical History History of ovarian cyst Surgical History Surgical History History of appendectomy 07/27/19 S/P left oophorectomy Family History Family History Mother Diabetes mellitus Father Hypertension Social History Social History Smoking status: Never smoker Second hand tobacco smoke exposure: No Alcohol intake: unknown Alcohol use details: occasional Substance use: unknown Substance use type: does not use Gender identity (if verbalized by the patient): Female Spiritual care concerns: No Comments At the time of my signature, I reviewed and agree with the nursing past medical, surgical, social, and family history. There is no relevant family history pertinent to the patient complaint. Exam Const: General: healthy appearing, no acute distress and alert Nutritional Appearance: well nourished Orientation/consciousness: patient oriented x3 Limitations: no limitations HENMT: Head: normal to inspection Ears: external ears normal Eyes: Pupils: Equal, round and reactive pupils present Neck: Neck: normal visual inspection, no lymphadenopathy and no meningeal signs Chest: Chest palpation & inspection: normal inspection of the chest Resp: Effort & Inspection: normal respiratory effort and no use of accessory muscles Auscultation: clear to auscultation bilaterally, no crackles, no rales, no rhonchi and no wheezes Cardio: Rate: regular rate Rhythm: regular rhythm Skin: General skin exam: normal color Rashes: no rashes Wounds: wounds noted (Distal right, swelling, redness, fluctuan
== END 2021-07-07 18:32 | disposition home or self-care (01) ==
PROVIDERS: Emergency Provider Nurse Practitioner
DX: L03.011 Cellulitis of right finger (principal); I10 Essential (primary) hypertension
CPT/HCPCS: 10060; 87070; 87075; 87147; 87181; 87186; 87205; 99213; G0463

== ENCOUNTER → 2022-12-25 10:27 | Outpatient (CLI) | payer OTHER, SELFPAY ==
--- NOTE | ~2022-12-25 | US_ITS ---
EXAMINATION: US transvaginal DATE: 12/25/2022 10:53 INDICATION: Pelvic pain Comparison:Ultrasound dated 02/14/2018 TECHNIQUE: Multiple transabdominal and endovaginal sonographic images of the pelvis performed. FINDINGS: The uterus measures 8.7 x 3.7 x 4.8 cm. There is a small uterine fibroid measuring 9 mm on the left. There are nabothian cysts. The endometrial complex measures 5 mm. The right ovary measures 3.4 x 2.1 x 2.5 cm. There is normal Doppler signal in the right ovary. The l eft ovary is not visualized. There is no free fluid in the pelvis. There are no abnormal masses seen on either side. IMPRESSION: 1. Small uterine fibroid measuring 9 mm. Reviewed, dictated and finalized at location B. PAINTER
== END ==
PROVIDERS: PCP Advanced Practice Midwife; Visit Provider Advanced Practice Midwife
DX: R10.2 Pelvic and perineal pain (principal); D25.9 Leiomyoma of uterus, unspecified
CPT/HCPCS: 76830

== ENCOUNTER → 2023-04-02 14:09 | Outpatient (CLI) | payer OTHER, SELFPAY ==
--- NOTE | ~2023-04-02 | MM_ITS ---
EXAMINATION: MM screening [facility] BI w crystal HISTORY: Screening TECHNIQUE: Craniocaudal and mediolateral oblique 3-D tomosynthesis images were obtained and synthetic 2-D images were generated. CAD analysis was submitted and interpreted. COMPARISON: Comparison to multiple prior studies sequentially, with oldest reviewed study dated 02/14. BREAST PARENCHYMAL COMPOSITION: Not dense: There are scattered areas of fibroglandular density. FINDINGS: There is no evidence of suspicious mass, calcification, or architectural distortion to sugg est malignancy in either breast. There has been no suspicious interval change. IMPRESSION: 1. No mammographic evidence of malignancy. 2. Recommend routine screening mammography in one year. BI-RADS Category 1: Negative Reviewed, dictated and finalized at location A. ICE PORTER
== END ==
PROVIDERS: PCP Obstetrics & Gynecology Gynecology; Visit Provider Obstetrics & Gynecology Gynecology
DX: Z12.31 Encounter for screening mammogram for malignant neoplasm of breast (principal)
CPT/HCPCS: 77063; 77067

== ENCOUNTER 2023-11-12 13:31 | Outpatient (CLI) | payer OTHER, SELFPAY ==
--- NOTE | ~2023-11-12 | US_ITS ---
US transvaginal Ordering provider: Chiquis Morgan CNM History: . FIBROID . Comparison: None. Technique: endovaginal ultrasound of the pelvis (Doppler ultrasound interrogation techniques used as needed for this exam.) FINDINGS: CERVIX: Nabothian cysts. UTERUS: Measures 7.9x 3.9 cm in length which is within normal limits and is anteverted. Hypoechoic a lizbet is seen measuring 0.9 x 1 x 0.9 cm which may be a small fibroid. ENDOMETRIUM: Normal in thickness measuring 5.6 mm. No endometrial masses, cysts or fluid. CUL DE SAC: No free fluid. RIGHT OVARY: Normal in size measuring 1.2x 2x 1.3 cm. Normal echotexture. Doppler vascular flow prese nt. LEFT OVARY: Not visualized. ADNEXA: Normal. No mass. IMPRESSION: Possible small fibroid in the fundus area. Nabothian cysts in the cervix. Otherwise, normal pelvic ul trasound. Reviewed, dictated and finalized at location A. IMPRESSION: Possible small fibroid in the fundus area. Nabothian cysts in the cervix. Other [place], normal pelvic ultrasound.
== END 2023-11-12 13:32 | disposition home or self-care (01) ==
PROVIDERS: PCP Advanced Practice Midwife; Visit Provider Advanced Practice Midwife
DX: D25.9 Leiomyoma of uterus, unspecified (principal)
CPT/HCPCS: 76830

== ENCOUNTER 2023-11-19 01:00 | Day surgery (SDC) | payer OTHER, SELFPAY ==
[2023-11-14 16:07] VITALS: BMI 37.3
--- NOTE | 2023-11-14 16:13 | PC.NURSE ---
Report to the Outpatient Waiting Room, entrance under the green pavilion located off [facility], at time _0700_ on date _[id number]_. Planned Procedure Time: _0900_.? Time changes happen often and if your time is changed the preop area will call you the afternoon before. - You and your visitor will be asked to self-screen and do not enter if you have any COVID symptoms. Please call surgeon if you need to reschedule. - A mask is optional within the hospital at this time. Patients may have clear liquids (water, carbonated beverages, clear teas, apple juice) until 3 hours prior to surgery with a maximum of 20 ounces. - No food from midnight until time of surgery and no smoking Take only the following medications with a SIP of water on the morning of surgery: ___None DO NOT STOP ANY OF YOUR OTHER PRESCRIPTION MEDICATIONS PRIOR TO SURGERY EXCEPT THE FOLLOWING Medications to discontinue per physician ____all vitamins and supplements Date to take last aige____[id number] Please no make-up, nail macedonian, hairspray, perfume, deodorant, or body powder the day of surgery.? No jewelry (including any body piercings) or valuables the day of surgery, leave them at home.? Please take a shower or bath the night before, or the morning of, surgery with an antibacterial soap.? Wear comfortable, loose fitting clothing.? - Jewelry must be removed prior to entering the operating room.? Rings and piercings that are not removed may be cut off. - The hospital will not accept responsibility for valuables.? - Please leave all valuables, including medications, at home the day of surgery. If you are going home after surgery, a licensed short haul driver must drive you home.? - NO public transportation without another adult if you receive anesthesia. - We recommend that an adult stay with you for 24 hours following discharge. - We also recommend that you do not drive, make important decision, drink alcoholic beverages, or take any drugs that were not prescribed by your health care provider for at least 24 hours after your discharge time. Follow any additional instructions given to you from your surgeon. Telephone instructions given to __Troy__and asked if any additional questions and then verbalized understanding. Patient advised to call surgeon office or pre surgery nurse liaison [phone] if any additional questions.
--- NOTE | 2023-11-19 07:23 | WPDHPUPDATE1 ---
History and Physical Update Update Date/Time: 11/19/23 07:23 History and Physical has been reviewed, including an updated exam of the patient. There are NO changes in the patient's condition. Risks, benefits, and alternatives have been discussed and questions answered. Patient agrees to proceed with procedure.
--- NOTE | 2023-11-19 07:23 | PM.HPGS ---
History of Present Illness History of Present Illness Consent: Risks, benefits, and alternatives have been discussed and questions answered. Patient agrees to proceed with procedure. Chief complaint: abn uterine bleeding, fibroids Narrative: Joshua Brgag is a 48 year old female with prolonged bleeding. Patient had a 3 week episode of bleeding. The patient had been on Depo-Provera but her last injection was June of 2023. Patient with a small fibroid by ultrasound that has been stable over 1 year at 0.9cm. It was recommended to undergo D&C hysteroscopy to further evaluate. Risks of infection, bleeding, perforation fluid imbalance, and possible pathology are reviewed. Patient voices understanding and agrees to proceed. Review of Systems Review of Systems: not repeated day of surgery; patient states no changes in status PMFSH Past Medical History Medical History (Updated 11/19/23 @ 07:30 by Sarina Richardson MD) Borderline diabetes HTN (hypertension) Hypercholesterolemia (normal spontaneous vaginal delivery) Surgical History Surgical History (Updated 11/19/23 @ 07:27 by Sarina Richardson MD) History of appendectomy 07/27/19 History of cholecystectomy S/P left oophorectomy 2011 Family History Family History Mother Diabetes mellitus Father Hypertension Social History Social History Smoking status: Never smoker Second hand tobacco smoke exposure: No Alcohol intake: current Alcohol use details: occasional Substance use: unknown Substance use type: does not use Living arrangements: with family Gender identity (if verbalized by the patient): Female Spiritual care concerns: No Meds Home Medications and Allergies Home Medications Medication Instructions Recorded Confirmed Type multivitamin (Daily Multi-Vitamin 1 tablet PO DAILY 07/27/19 11/14/23 History tablet) lisinopril 20 1 tablet PO DAILY 07/07/21 11/14/23 History mg-hydrochlorothiazide 12.5 mg tablet metformin 500 mg tablet 1 tablet PO BID 07/07/21 11/14/23 History apple cider vinegar 600 mg capsule 600 mg PO DAILY 11/14/23 11/14/23 History atorvastatin 10 mg tablet 10 mg PO HS 11/14/23 11/14/23 History Allergies Allergy/AdvReac Type Severity Reaction Status Date / Time No Known Allergies Allergy Verified 11/14/23 16:05 Exam Const: General: healthy appearing and alert Orientation/consciousness: patient oriented x3 Resp: Effort & Inspection: normal respiratory effort GI: GI Palp: Yes Tenderness to palpation present (GI) and Yes Palpable mass present : External Female Exam: normal external appearance Speculum Exam - Vagina: normal appearance of the vagina and normal vaginal discharge Speculum Exam - Cervix: normal appearance of the cervix Bimanual exam- vagina & uterus: uterine size normal and consistency normal Bimanual Exam- Adnexa, other: normal adnexae and No adnexal tenderness Neuro: General: patient oriented x3 Assessment and Plan Assessment and plan (1) Irregular menses: Code(s): N92.6 - Irregular menstruation, unspecified Status: Acute Assessment and Plan: plan to proceed with D&C hysteroscopy (2) Fibroids: Code(s): D21.9 - Benign neoplasm of connective and other soft tissue, unspecified Status: Acute
[2023-11-19 07:52] VITALS: BP 147/78; PULSE 95; TEMP 36.8; BMI 36.9
[2023-11-19] MEDS: LACTATED RINGERS 1,000 ML 30 ML IV CONT (07:57)
[2023-11-19 07:59] LABS: BEDSIDEPREGUCG Negative (Negative)
[2023-11-19 08:14] LABS: Anion Gap 9 mmol/L (4-12); Blood Urea Nitrogen 13 mg/dL (7-17); Calcium 9.5 mg/dL (8.4-10.2); Carbon Dioxide 23 mmol/L (22-30); Chloride 107 mmol/L (98-107); Estimated CRCL calculation 117 ml/min; Estimated Glomerular Filt Rate > 60; Glucose 107 mg/dL (65-110); Sodium 139 mmol/L (137-145)
--- NOTE | 2023-11-19 08:34 | WPDANESEPPF ---
Anes - Initial Pre Proc Eval Procedure: Operation Date: 11/19/23 09:00 Proposed Procedures p Hysteroscopy, Dilation and Curettage - Sarina Richardson MD Date/Time: 11/19/23 08:34 Surgeon: Sarina Richardson MD Pre Op Diagnosis: abn uterine bleeding, fibroids Patient Data Age: 48 Gender: F Height: 1.68 m Weight: 103.8 kg Last Vital Signs Temp 36.8 C 11/19/23 07:52 Pulse 95 11/19/23 07:52 BP 147/78 H 11/19/23 07:52 O2 Del Method Room Air 11/19/23 07:52 Allergies Allergy/AdvReac Type Severity Reaction Status Date / Time No Known Allergies Allergy Verified 11/14/23 16:05 Home Medications Medication Instructions Recorded Confirmed Type multivitamin (Daily Multi-Vitamin 1 tablet PO DAILY 07/27/19 11/14/23 History tablet) lisinopril 20 1 tablet PO DAILY 07/07/21 11/14/23 History mg-hydrochlorothiazide 12.5 mg tablet metformin 500 mg tablet 1 tablet PO BID 07/07/21 11/14/23 History apple cider vinegar 600 mg capsule 600 mg PO DAILY 11/14/23 11/14/23 History atorvastatin 10 mg tablet 10 mg PO HS 11/14/23 11/14/23 History Laboratory Tests 11/19/23 11/19/23 07:52 07:54 Sodium 139 mmol/L (137-145) Potassium 4.0 mmol/L (3.4-5.0) Chloride 107 mmol/L (98-107) Carbon Dioxide 23 mmol/L (22-30) Anion Gap 9 mmol/L (4-12) BUN 13 D mg/dL (7-17) Creatinine 0.60 L mg/dL (0.7-1.0) Estim Creat Clear Calc 117 ml/min Estimated GFR > 60 (59 - ) Glucose 107 mg/dL (65-110) Calcium 9.5 mg/dL (8.4-10.2) POC Urine HCG, Qual Negative (Negative) Patient hx anesthesia problems: none Family hx anesthesia problems: none Results Review: All pre-operative results and documents have been reviewed as part of the pre-operative evaluation. [facility] Past Medical History Medical History Borderline diabetes HTN (hypertension) Hypercholesterolemia (normal spontaneous vaginal delivery) Surgical History Surgical History History of appendectomy 07/27/19 History of cholecystectomy S/P left oophorectomy 2011 Family History Family History Mother Diabetes mellitus Father Hypertension Social History Social History Smoking status: Never smoker Second hand tobacco smoke exposure: No Alcohol intake: current Alcohol use details: occasional Substance use: unknown Substance use type: does not use Living arrangements: with family Gender identity (if verbalized by the patient): Female Spiritual care concerns: No Anes - Eval Final PreProcedure Day of Procedure 11/19/23 08:34 Patient weight: obese Heart: regular rate and rhythm Lungs: clear to auscultation Airway: Mallampati scale class II Neurological: alert and oriented Last oral intake: >/= 8 hours ASA classification: II Emergent: no Anesthetic plan: proceed Anesthesia type and monitoring: general GIVS and standard monitoring Results Review: All pre-operative results and documents have been reviewed as part of the pre-operative evaluation. Informed Consent: The patient's anesthetic plan and its attendant risks and benefits were discussed with the patient/family/POA. Questions were solicited and answers provided to the satisfaction of the patient/family/POA.
[2023-11-19] MEDS: KETOROLAC 30 MG/ML VIAL (*BKC) IV PUSH (08:56)
--- NOTE | 2023-11-19 08:59 | W.PM.PROC2 ---
Procedure Note - Detailed Date of Procedure 11/19/23 Pre-op Diagnosis abnormal uterine bleeding, fibroid Post-op Diagnosis Same Procedure Performed D&C hysteroscopy Surgeon Sarina Richardson MD Anesthesia MAC Findings uterus sounds to 9cm and appears grossly normal no submucosal fibroids noted Description of Procedure The patient is taken to the operating room and placed under anesthesia in the dorsal lithotomy position. She was prepped and draped in the usual sterile fashion. [place] speculum was placed in the vagina and the cervix was grasped on the anterior lip with a tenaculum. The uterus is sounded to 9cm. The diagnostic hysteroscope was placed and with no abnormalities noted it is removed. The sharp OO curette is used to curette the endometrium until a good uterine cry was noted all areas. All instruments are removed. Sponge, needle, and instrument counts are correct per the OR staff. Patient was taken to recovery in stable condition. Estimated Blood Loss 5 Drains No Packing No Pathology Yes ( Endometrial curettings) Complications No immediate complications Condition Stable Disposition PACU
[2023-11-19 09:00] VITALS: BP 106/56; PULSE 97; RESP 14; O2SAT 100
[2023-11-19 09:30] VITALS: BP 114/64; PULSE 84; RESP 14; O2SAT 99
== END 2023-11-19 09:52 | disposition home or self-care (01) ==
PROVIDERS: Anesthesiology; PCP Internal Medicine; Visit Provider Obstetrics & Gynecology Gynecology
PROC: 0U5B8ZZ Destruction of Endometrium, Via Natural or Artificial Opening Endoscopic (ICD-10-PCS; CPT 58563; principal; 2023-11-19 09:00)
DX: N85.8 Other specified noninflammatory disorders of uterus (principal); I10 Essential (primary) hypertension; E78.00 Pure hypercholesterolemia, unspecified; R73.03 Prediabetes; Z79.84 Long term (current) use of oral hypoglycemic drugs
CPT/HCPCS: 58558; 36415; 80048; 88305; J1100; J1885; J2003; J2250; J2405; J2704; J3010; J7030; J7120

== ENCOUNTER 2024-04-07 10:34 | Outpatient (CLI) | payer OTHER, SELFPAY | END 2024-04-07 10:35 | disposition home or self-care (01) | LOC: MICIMG 10:36 | PROVIDERS: PCP Internal Medicine; Visit Provider Obstetrics & Gynecology Gynecology | DX: Z12.31 Encounter for screening mammogram for malignant neoplasm of breast (principal) | CPT/HCPCS: 77063; 77067 ==

== ENCOUNTER 2024-10-22 05:45 | Emergency (ER) | payer OTHER, SELFPAY ==
--- NOTE | ~2024-10-22 | XR_ITS ---
EXAM/ PROCEDURE: XR lumbar spine 2-3V - 10/22/2024 7:45 CDT HISTORY: 49 years old Female with pain X 2 DAYS COMPARISON: None available TECHNIQUE: Three view(s) FINDINGS/ IMPRESSION: There are no fractures or dislocations.Intervertebral disc spaces are within normal limits. Cholecystectomy clips are seen. Reviewed, dictated and finalized at location N.
--- OUTSIDE RECORDS SUMMARY | 2024-10-22 05:47 | XMS_ITS | Encounter Summary ---
Author Organization [facility] Address [facility] [place] [address] Care Team Providers Care Supervisor Shipping Room Name Role Phone José Luis Santos MD Primary Care Provider [phone] Encounter Details Date Type Department Care Team (Late st Contact Info) Description 08/07/2024 Temporal Power Message Enc [facility] Medical [facility] General Surgery [address], [facility] [address] [place] [address] [facility] Provider Schedule Specialist Consultation Appointment Social History Tobacco Use Types Packs/Day Years Used Date Smoking Tobacco: Never Smokeless Tobacco: Never Comments:counseled by Dr Tara hodges Alcohol Use Standard Drinks/Week Comments Yes 0 (1 standard drink = 0.6 oz pur e alcohol) Occ. PHQ-2 Answer Date Recorded Patient Health Questionnaire-2 Score 0 03/10/2024 Comments No Sex and Gender Information Value Date Recorded Sex Assigned at Female 05/12/2024 9:32 AM CDT Legal Sex Female 7:04 PM CDT Gender Identity Female 02/09/2021 8:43 AM FILL MANAGER Sexual Orientation Straight 05/12/2024 9: 32 AM CDT documented as of this encounter Plan of Treatment Upcoming Encounters Date Type Department Care Team (Late st Contact Info) Description 02/16/2025 9:00 AM FILL MANAGER Office Visit [facility] Multispecialty Care - [place] [address] [address] [address] [place] [address] José Luis Santos MD [address] [place] [address] [address] [place] [address] documented as of this encounter Visit Diagnoses Not on filedocumented in this encounter Additional Health Concerns Assessment Noted Time PHQ-9 Depression Total Score: 0 05/28/19 24 3:42 PM CDT documented as of this encounter Care Teams Supervisor Shipping Room Relationship Specialty Start Date End Date José Luis Santos MD [address] [address] PCP - General INTERNAL MEDICINE 11/15/20 documented as of this encounter
--- OUTSIDE RECORDS SUMMARY | 2024-10-22 05:47 | XMS_ITS | Encounter Summary ---
Author Organization [facility] Address [facility] [place] [address] Care Team Providers Care Recycling Operations Manager Name Role Phone José Luis Santos MD Primary Care Provider [phone] Encounter Details Date Type Department Care Team (Latest Contact Info) Description 10/26/2022 MyChart Message Enc [address] [address] [address] [place] [address] [place] [address] [place] [address] [address] [place] [address] Annual physical overdue Social History Tobacco Use Types Packs/Day Years Used Date Smoking Tobacco: Never Smokeless Tobacco: Never Comments:counseled by Dr Tara hodges Alcohol Use Standard Drinks/Week Comments Yes 3.3 (1 standard drink = 0.6 oz p ure alcohol) PHQ-2 Answer Date Recorded PHQ-2 Score - If the patient scores above 3, please move on to questions 3-9 0 10/24/2021 Comments No Sex and Gender Information Value Date Recorded Sex Assigned at Female 05/12/2024 9:32 AM CDT Legal Sex Female 7:04 PM CDT Gender Identity Female 02/09/2021 8:43 AM AIRPLANE TESTER Sexual Orientation Straight 05/12/2024 9: 32 AM CDT documented as of this encounter Plan of Treatment Upcoming Encounters Date Type Department Care Team (Late st Contact Info) Description 02/16/2025 9:00 AM AIRPLANE TESTER Office Visit [address] [place] [address] José Luis Santos MD [address] [place] [address] documented as of this encounter Visit Diagnoses Not on filedocumented in this encounter Additional Health Concerns Assessment Noted Time PHQ-9 Depression Total Score: 1 10/19/19 21 9:17 AM CDT documented as of this encounter Care Teams Recycling Operations Manager Relationship Specialty Start Date End Date José Luis Santos MD [address] [place] [address] PCP - General INTERNAL MEDICINE 11/15/20 documented as of this encounter
--- OUTSIDE RECORDS SUMMARY | 2024-10-22 05:47 | XMS_ITS | Encounter Summary ---
Author Organization [facility] Address [facility] [place] [address] Care Team Providers Care Oil Boiler Name Role Phone José Luis Santos MD Primary Care Provider [phone] Encounter Details Date Type Department Care Team (Late st Contact Info) Description 01/18/2023 Improve Digital Message [address] [address] [facility] Provider Screening Social History Tobacco Use Types Packs/Day Years Used Date Smoking Tobacco: Never Smokeless Tobacco: Never Comments:counseled by Dr Tara hodges Alcohol Use Standard Drinks/Week Comments Not Currently 0 (1 standard drink = 0.6 oz pur e alcohol) PHQ-2 Answer Date Recorded PHQ-2 Score - If the patient scores above 3, please move on to questions 3-9 0 10/24/2021 Comments No Sex and Gender Information Value Date Recorded Sex Assigned at Female 05/12/2024 9:32 AM CDT Legal Sex Female 7:04 PM CDT Gender Identity Female 02/09/2021 8:43 AM CLINICAL TEAM LEAD Sexual Orientation Straight 05/12/2024 9: 32 AM CDT documented as of this encounter Plan of Treatment Upcoming Encounters Date Type Department Care Team (Late st Contact Info) Description 02/16/2025 9:00 AM CLINICAL TEAM LEAD Office Visit [facility] Multispecialty Care - [place] [address] [address] [address] [place] [address] José Luis Santos MD [address] [place] [address] [address] [place] [address] documented as of this encounter Visit Diagnoses Not on filedocumented in this encounter Additional Health Concerns Assessment Noted Time PHQ-9 Depression Total Score: 1 10/19/19 21 9:17 AM CDT documented as of this encounter Care Teams Oil Boiler Relationship Specialty Start Date End Date José Luis Santos MD [address] [facility] [address] [place] [address] PCP - General INTERNAL MEDICINE 11/15/20 documented as of this encounter
--- OUTSIDE RECORDS SUMMARY | 2024-10-22 05:50 | XMS_ITS | Encounter Summary ---
Author Organization [facility] Address [facility] [place] [address] Care Team Providers Care Appellate Conferee Name Role Phone Anai Joseph NP Primary Care Provider José Luis Kenny MD Primary Care Provider [phone] Encounter Details Date Type Department Care Team (Latest Contact Info) Description 10/24/2020 dateIITianst Message Enc [facility] Multispecialty Care - [address] [place] [address] Anai Joseph NP RE: lab appointment Social History Tobacco Use Types Packs/Day Years Used Date Smoking Tobacco: Never Smokeless Tobacco: Never Alcohol Use Standard Drinks/Week Comments Yes 0 (1 standard drink = 0.6 oz pur e alcohol) 1-2 times per month PHQ-2 Answer Date Recorded PHQ-2 Score - If the patient scores above 3, please move on to questions 3-9 0 10/18/2020 Comments No Sex and Gender Information Value Date Recorded Sex Assigned at Female 05/12/2024 9:32 AM CDT Legal Sex Female 7:04 PM CDT Gender Identity Female 02/09/2021 8:43 AM ROLLER LEVELER Sexual Orientation Straight 05/12/2024 9: 32 AM CDT COVID-19 Exposure Response Date Recorded In the last month, have you been in contact with someone who was confirmed or suspected to have Coronavirus / COVID-19? No / Unsure 10/18/2020 8:39 AM CDT documented as of this encounter Plan of Treatment Upcoming Encounters Date Type Department Care Team (Late st Contact Info) Description 02/16/2025 9:00 AM ROLLER LEVELER Office Visit [facility] Multispecialty Care - [place] [address] [address] [address] [place] [address] [place] [address] [place] [address] [address] [place] [address] documented as of this encounter Visit Diagnoses Not on filedocumented in this encounter Additional Health Concerns Assessment Noted Time PHQ-9 Depression Total Score: 1 10/19/19 21 9:17 AM CDT documented as of this encounter Care Teams Appellate Conferee Relationship Specialty Start Date End Date Anai Joseph NP PCP - General NURSE PRACTITIONER 10/18/20 11/14/20 José Luis Santos MD [address] [place] [address] PCP - General INTERNAL MEDICINE 11/15/20 documented as of this encounter
--- OUTSIDE RECORDS SUMMARY | 2024-10-22 05:50 | XMS_ITS | Encounter Summary ---
Author Organization [facility] Address [facility] [place] [address] Care Team Providers Care Frame Welder Cargo Utility Trailers Name Role Phone José Luis Santos MD Primary Care Provider [phone] Encounter Details Date Type Department Care Team (Late st Contact Info) Description 01/11/2021 MyChart Message Enc [facility] Multispecialty Care - [place] [address] [address] [address] [place] [address] José Luis Santos MD [address] [place] [address] [address] [place], [place] [id number] lab result Social History Tobacco Use Types Packs/Day Years [...] CDT Gender Identity Female 02/09/2021 8:43 AM METAL FURNITURE PANEL COVERER Sexual Orientation Straight 05/12/2024 9: 32 AM CDT COVID-19 Exposure Response Date Recorded In the last month, have you been in contact with someone who was confirmed or suspected to have Coronavirus / COVID-19? No / Unsure 01/10/2021 9:38 AM METAL FURNITURE PANEL COVERER documented as of this encounter Plan of Treatment Upcoming Encounters Date Type Department Care Team (Late st Contact Info) Description 02/16/2025 9:00 AM METAL FURNITURE PANEL COVERER Office Visit [facility] Multispecialty Care - [place] [address] [address] [address] [place] [address] José Luis Santos MD [address] [place] [address] documented as of this encounter Visit Diagnoses Not on filedocumented in this encounter Additional Health Concerns Assessment Noted Time PHQ-9 Depression Total Score: 1 10/19/19 21 9:17 AM CDT documented as of this encounter Care Teams Frame Welder Cargo Utility Trailers Relationship Specialty Start Date End Date José Luis Santos MD [address] [place] [address] PCP - General INTERNAL MEDICINE 11/15/20 documented as of this encounter
--- OUTSIDE RECORDS SUMMARY | 2024-10-22 05:50 | XMS_ITS | Clinical Summary ---
Author Organization [facility] Address [address] [facility] [place] [address] Care Team Providers Care Cut Roll Machine Operator Name Role Phone Unavailable Primary Care Provider Unavailabl e Source Comments [facility],non-owned Affiliates and Associated Physician Practices is amultiple site organization consisting of ambulatory clinics and hospital sitesin [place], [place], [place] and [place]. This disclosure is being madepursuant to the Care Everywhere program and may not contain all information available regarding this patient. Last updated [employer] [facility] Allergies No known active allergies Medications * Be aware that medications may not be up to date on this document. Alwaysverify current medications with the patient. No known medications Active Problems No known active problems Immunizations Immunization Administration Dates Next Due INFLUENZA VACCINE 10/20/2010 Family History Medical History Relation Name Comments Cancer Maternal Grandfather lung CAD (Coronary Artery Disease) Mother Cancer Mother brain Diabetes Mother Relation Name Status Comments Maternal Grandfather Mother Social History Tobacco Use Types Packs/Day Years Used Date Smoking Tobacco: Never Smokeless Tobacco: Never Alcohol Use Standard Drinks/Week Comments Yes 0 (1 standard drink = 0.6 oz pur e alcohol) Comments No Sex and Gender Information Value Date Recorded Sex Assigned at Not on file Legal Sex Female 1:12 PM WHITE METAL CASTER Gender Identity Not on file Sexual Orientation Not on file Last Filed Vital Signs Vital Sign Reading Time Taken Comments Blood Pressure 128/84 03/24/2014 8:47 AM WHITE METAL CASTER Pulse 84 05/03/2011 7:55 AM CDT Temperature 37 C (98.6 F) 05/03/2011 8:20 AM CDT Respiratory Rate 18 05/03/2011 8:20 AM CDT Oxygen Saturation 97% 05/03/2011 7:55 AM CDT Inhaled Oxygen Concentration - - Weight 104.3 kg (230 lb) 03/24/2014 8:47 AM WHITE METAL CASTER Height 168.9 cm (5' 6.5) 03/24/2014 8:47 AM WHITE METAL CASTER Body Mass Index 36.57 03/24/2014 8:47 AM WHITE METAL CASTER Plan of Treatment Health Maintenance Due Date Last Done Comments COLOGUARD (AGES 45-75) - COL ON CA SCREENING 1974 COLON MONITORING 1974 COLONOSCOPY - COLON CA SCREENING 1974 CT COLONOGRAPHY - COLON CA SCREENING 1974 Colorectal Cancer Screening 1974 FIT - COLON CA SCREENING 1974 FLEX SIG - COLON CA SCREENING 1974 LIPID TESTING 1974 MAMMOGRAM 1974 HIV SCREENING 1989 HEPATITIS C SCREENING 06/20/1992 DTAP/TDAP/TD VACCINES (1 - Tdap) 1993 HEPATITIS B VACCINE (1 of 3 - 19+ 3-dose series) 1993 PAP SMEAR 03/24/2017 03/24/2014 DEPRESSION SCREENING 02/06/2024 PNEUMOCOCCAL VACCINE 50+ (1 of 1 - PCV) 2024 ZOSTER VACCINE (1 of 2) 2024 COVID-19 VACCINE (1 - 2023-2 5 season) 2024 INFLUENZA VACCINE (#1) 2024 10/20/2010 HIB VACCINE Aged Out No longer eligi ble based on patient's age to complete this topic HPV VACCINE Aged Out No longer eligi ble based on patient's age to complete this topic MENINGOCOCCAL (Group B) VACC INE SHARED DECISION-MAKING Aged Out No longer eligibl e based on patient's age to complete this topic MENINGOCOCCAL GROUPS A/C/Y/W VACCINE Aged Out No longer eligible b ased on patient's age to complete this topic Procedures Procedure Name Priority Date/Time Associated Diagnosis Comments PAP IG LB CT+NG VALE+PEDRO HPV 16,18 Routine 03/24/2014 9:25 AM WHITE METAL CASTER Routine gynecological examination from Last 3 Months or Most Recently Relevant to Health Maintenance Results * PAP IG CT+NG VALE+PEDRO HPV 16/18 (PO REF) (03/24/2014 9:25 AM WHITE METAL CASTER) Diagnosis [facility] ACCOUNT BILL Comment: NEGATIVE FOR INTRAEPITHELIAL LESION AND MALIGNANCY. PREDOMINANCE OF COCCOBACILLI CONSISTENT WITH SHIFT IN VAGINAL TULIO IS PRESENT. Specimen Adequacy [facility] ACCOUNT BILL Comment: Satisfactory for evaluation. Endocervical and/or squamous metaplastic cells (endocervical component) are present. Clinician Provided ICD9 [facility] ACCOUNT BILL Comment:V72.31 ; Routine slat twister ecological examination Performed by [facility] ACCOUNT BILL Comment:Telma Schafer, Cytotec hnologist (ASCP) Comment . [facility] ACCOUNT BILL Note [facility] ACCOUNT BILL Comment: The Pap smear is a screening test designed to aid in the detection of premalignant and malignant conditions of the uterine cervix. It is not a diagnostic procedure and should not be used as the sole means of detecting cervical cancer. Both false-positive and false-negative reports do occur. . IGLBP CPT Code Automation [facility] ACCOUNT BILL Comment: This liquid based ThinPrep(R) pap test was screened with the use of an image guided system. Human papillomavirus Other hr types Negative Negative [facility] ACCOUNT BILL Human papillomavirus 16 Negative Negative [facility] ACCOUNT BILL Human papillomavirus 18 Negative Negative [facility] ACCOUNT BILL Comment: This test detects fourteen high-risk HPV types: HPV16, HPV18 and twelve other high-risk types (31, 33, 35, 39, 45, 51, 52, 56, 58, 59, 66, 68) without differentiation. Chlamydia trachomatis VALE Negative Negative [facility] ACCOUNT BILL GC DNA Probe Negative Negative [facility] ACCOUNT BILL MICROSCOPIC CYTOLOGIC EXAMINATION OF SMEAR OF SPECIMEN FROM FEMALE GENITAL TRACT PREPARED USING PAPANICOLAOU TECHNIQUE / Unknown 03/24/2014 9:25 AM WHITE METAL CASTER 03/25/2014 12:36 AM WHITE METAL CASTER Narrative [facility] ACCOUNT BILL - 03/28/2014 9:34 AM WHITE METAL CASTER No. of containers..01 CYTYC Thin Prep Vial Resulting Agency Comment [facility] [place] Robe [id number] Danyelle Martin SCRAP CHARGER-CO FOUNDER AND CEO LAB - PATHOLOGY/CYTOLOGY ORDERABLES Final Result [facility] ACCOUNT BILL [address] [place] [address] from Last 3 Months or Most Recently Relevant to Health Maintenance Insurance [employer] SELF PAY NO INSURANCE Member Subscriber Plan / Payer (Ef fective for All Dates) Name:Joshua Bragg Member ID:Not on file Relation to Subscriber:Not on file Name:JOSHUA BRAGG Subscriber ID:Not on file (Home) Address: [address] [place] [address] Payer ID:Not on file Group ID:Not on file Type:Self Pay Address: [place], [place] [employer] Address: [facility] [id number] [address] Advance Directives * FULL RESUSCITATION (Latest Code Status on File) Date Activated Date Inactivated Comments 05/01/2011 10:43 AM 05/04/2011 1:54 AM * FULL RESUSCITATION Date Activated Date Inactivated Comments 04/29/2011 11:48 PM 05/01/2011 10:43 AM
--- OUTSIDE RECORDS SUMMARY | 2024-10-22 05:53 | XMS_ITS | Encounter Summary ---
Author Organization [facility] Address [facility] [place] [address] Care Team Providers Care Soldering Machine Feeder Name Role Phone José Luis Santos MD Primary Care Provider [phone] Encounter Details Date Type Department Care Team (Late st Contact Info) Description 04/12/2021 MyChart Message Enc [facility] Multispecialty Care - [place] [address] [address] [address] [place] [address] [place] [address] [place] [address] [address] [place] [address] Rybelsus 14 mg Social History Tobacco Use Types Packs/Day Years [...] CDT Gender Identity Female 02/09/2021 8:43 AM EMPLOYEE RELATIONS REPRESENTATIVE Sexual Orientation Straight 05/12/2024 9: 32 AM CDT COVID-19 Exposure Response Date Recorded In the last 10 days, have yo u been in contact with someone who was confirmed or suspected to have Coronavirus/COVID-19? No / Unsure 04/04/2021 9:10 AM EMPLOYEE RELATIONS REPRESENTATIVE documented as of this encounter Plan of Treatment Upcoming Encounters Date Type Department Care Team (Late st Contact Info) Description 02/16/2025 9:00 AM EMPLOYEE RELATIONS REPRESENTATIVE Office Visit [facility] Multispecialty Care - [place] [address] [address] [address] [place] [address] José Luis Santos MD [address] [place] [address] documented as of this encounter Visit Diagnoses Not on filedocumented in this encounter Additional Health Concerns Assessment Noted Time PHQ-9 Depression Total Score: 1 10/19/19 21 9:17 AM CDT documented as of this encounter Care Teams Soldering Machine Feeder Relationship Specialty Start Date End Date José Luis Santos MD [address] [place] [id number] PCP - General INTERNAL MEDICINE 11/15/20 documented as of this encounter
--- OUTSIDE RECORDS SUMMARY | 2024-10-22 05:53 | XMS_ITS | Encounter Summary ---
Author Organization [facility] Address [facility] [place] [address] Care Team Providers Care Kitchen Food Server Name Role Phone José Luis Santos MD Primary Care Provider [phone] Encounter Details Date Type Department Care Team (Late st Contact Info) Description 10/25/2021 MTX Connect Message Enc [facility] - [address] [place] [address] [place], [facility] Provider lab results Social History Tobacco Use Types Packs/Day Years [...] CDT Gender Identity Female 02/09/2021 8:43 AM TRAVELING NURSE Sexual Orientation Straight 05/12/2024 9: 32 AM CDT COVID-19 Exposure Response Date Recorded In the last 10 days, have yo u been in contact with someone who was confirmed or suspected to have Coronavirus/COVID-19? No / Unsure 10/24/2021 9:43 AM CDT documented as of this encounter Plan of Treatment Upcoming Encounters Date Type Department Care Team (Late Contact Info) Description 02/16/2025 9:00 AM TRAVELING NURSE Office Visit [facility] - [address] [place] [address] José Luis Santos MD [address] [place] [id number] documented as of this encounter Visit Diagnoses Not on filedocumented in this encounter Additional Health Concerns Assessment Noted Time PHQ-9 Depression Total Score: 1 10/19/19 21 9:17 AM CDT documented as of this encounter Care Teams Kitchen Food Server Relationship Specialty Start Date End Date José Luis Santos MD [address] [place] [id number] PCP - General INTERNAL MEDICINE 11/15/20 documented as of this encounter
--- OUTSIDE RECORDS SUMMARY | 2024-10-22 05:53 | XMS_ITS | Encounter Summary ---
Author Organization [facility] Address [facility] [place] [address] Care Team Providers Care Plastic Installer Name Role Phone José Luis Santos MD Primary Care Provider [phone] Encounter Details Date Type Department Care Team (Latest Contact Info) Description 03/22/2021 MyChart Message Enc [facility] Multispecialty Care - [address] [place] [address] [address] [place] [address] [place] [address] [place] [address] [address] [place] [address] coupon for rybels Social History Tobacco Use Types Packs/Day Years [...] CDT Gender Identity Female 02/09/2021 8:43 AM SENIOR PRINCIPAL SOFTWARE ENGINEER Sexual Orientation Straight 05/12/2024 9: 32 AM CDT COVID-19 Exposure Response Date Recorded In the last month, have you been in contact with someone who was confirmed or suspected to have Coronavirus / COVID-19? No / Unsure 03/07/2021 9:16 AM SENIOR PRINCIPAL SOFTWARE ENGINEER documented as of this encounter Plan of Treatment Upcoming Encounters Date Type Department Care Team (Late st Contact Info) Description 02/16/2025 9:00 AM SENIOR PRINCIPAL SOFTWARE ENGINEER Office Visit [facility]pec[facility] - [address] [place] [address] [address] [place] [address] José Luis Santos MD [address] [place] [id number] documented as of this encounter Visit Diagnoses Not on filedocumented in this encounter Additional Health Concerns Assessment Noted Time PHQ-9 Depression Total Score: 1 10/19/19 21 9:17 AM CDT documented as of this encounter Care Teams Plastic Installer Relationship Specialty Start Date End Date José Luis Santos MD [address] [place] [id number] PCP - General INTERNAL MEDICINE 11/15/20 documented as of this encounter
[2024-10-22 06:19] VITALS: BP 146/89; PULSE 101; RESP 18; TEMP 36.9; O2SAT 99
[2024-10-22 06:27] LABS: BEDSIDEPREGUCG Negative (Negative)
[2024-10-22 06:52] LABS: Add Urine Microscopic? YES; Appearance Urine Cloudy (Clear); Glucose Urine UA Negative (Negative); Leukocyte Esterase Ur 2+ LEU/UL (Negative); Need Manual Microscopic Reviewed; Nitrate Urine Negative (Negative); Specific Grav Ur 1.028 (1.001-1.035)
--- NOTE | 2024-10-22 07:58 | ED.BACK ---
HPI - Back Pain/Injury General Chief Complaint: Back Pain/Injury Stated Complaint: back pain Time Seen by Provider: 10/22/24 07:06 History of Present Illness HPI Narrative: Patient is a 49-year-old female who presents ER with low back pain. Middle and radiates out to the sides. She was helping move furniture a few days ago. She then developed low back pain. Minimal improvement with Aleve. Mild urinary frequency but no dysuria. No fevers chills or sweats. No saddle anesthesia. No numbness radiating down the leg. Related Data Home Medications ?Medication ?Instructions ?Recorded ?Confirmed ?Last Taken ?Type multivitamin (Daily Multi-Vitamin 1 tablet PO DAILY 07/27/19 11/14/23 Unknown History tablet) lisinopril 20 1 tablet PO DAILY 07/07/21 11/14/23 Unknown History mg-hydrochlorothiazide 12.5 mg tablet metformin 500 mg tablet 1 tablet PO BID 07/07/21 11/14/23 Unknown History apple cider vinegar 600 mg capsule 600 mg PO DAILY 11/14/23 11/14/23 Unknown History atorvastatin 10 mg tablet 10 mg PO HS 11/14/23 11/14/23 Unknown History Allergies Allergy/AdvReac Type Severity Reaction Status Date / Time No Known Allergies Allergy Verified 10/22/24 05:46 Review of Systems Constitutional: Constitutional: Reports no additional constitutional complaints Gastrointestinal: Gastrointestinal: Reports no additional gastrointestinal complaints Genitourinary: Genitourinary: Reports no additional female genitourinary complaints Musculoskeletal: Musculoskeletal: Reports no additional musculoskeletal complaints [facility] Past Medical History Medical History Borderline diabetes HTN (hypertension) Hypercholesterolemia (normal spontaneous vaginal delivery) Surgical History Surgical History History of appendectomy 07/27/19 History of cholecystectomy S/P left oophorectomy 2011 Family History Family History Mother Diabetes mellitus Father Hypertension Social History Social History Smoking status: Never smoker Second hand tobacco smoke exposure: No Alcohol intake: current Alcohol use details: occasional Substance use: unknown Substance use type: does not use Living arrangements: with family Gender identity (if verbalized by the patient): Female Spiritual care concerns: No Exam Narrative: GENERAL: Well-appearing, well-nourished, and in no acute distress. HEAD: Normocephalic, atraumatic. ENT: Mucous membranes moist. CHEST: Clear to auscultation. No respiratory distress. HEART: Regular rate and rhythm. Normal peripheral pulses. Back: No reproducible midline or paraspinal tenderness of the T/L-spine.. EXTREMITIES: Normal range of motion. No edema. SKIN: Warm, dry, no rash. NEURO: Alert and oriented x3. PSYCH: Normal mood and affect. Course Course Emergency Course: Urinalysis with many squamous epithelial cells but 51-100 white blood cells as well as 3+ bacteria. Patient without CVA tenderness. Will treat with oral antibiotic. Muscle relaxers and anti-inflammatories for back pain. X-ray without fracture. Vital Signs Vital signs: Vital Signs Temperature 98.4 F 10/22/24 06:19 Pulse Rate 101 H 10/22/24 06:19 Respiratory Rate 18 10/22/24 06:19 Blood Pressure 146/89 H 10/22/24 06:19 Pulse Oximetry 99 10/22/24 06:19 Oxygen Delivery Room Air 10/22/24 06:19 Temperature 98.4 F 10/22/24 06:19 Pulse Rate 101 H 10/22/24 06:19 Respiratory Rate 18 10/22/24 06:19 Blood Pressure 146/89 H 10/22/24 06:19 Pulse Oximetry 99 10/22/24 06:19 Oxygen Delivery Room Air 10/22/24 06:19 MDM - Back Pain/Injury Lab Data Labs: Lab Results 10/22/24 10/22/24 Range/Units 06:24 06:26 Urine Color Yellow (Yellow) Urine Appearance Cloudy H (Clear) Urine pH 5.0 (5.0-9.0) Ur Specific Effort 1.028 (1.001-1.035) Urine Protein Negative (Negative) mg/dL Urine Glucose (UA) Negative (Negative) mg/dL Urine Ketones Trace H (Negative) mg/dL Ur Blood (Man) 1+ H (Negative) Urine Nitrate Negative (Negative) Urine Bilirubin Negative (Negative) Urine Urobilinogen 1.0 (<2.0) mg/dL Add Ur Microanalysis Reviewed Leukocyte Esterase Rfl 2+ H (Negative) CINDY/UL Urine RBC 11-20 H (0-2) /hpf Urine WBC 51-100 H (0-3) /hpf Ur Squamous Epith Cells Many H (Few) /hpf Urine Bacteria 3+ H /hpf Urine Casts 6-10 POC Urine HCG, Qual Negative (Negative) Imaging Data Radiologist's impression: FINDINGS/ IMPRESSION: There are no fractures or dislocations.Intervertebral disc spaces are within normal limits. Cholecystectomy clips are seen. Discharge Plan Discharge Clinical Impression: Lumbar strain, UTI (urinary tract infection) Patient Disposition: Home Condition: Stable Instructions: Antibiotic Form, Urinary Tract Infection in Women (ED), Lower Back Exercises (ED) Additional Instructions: Please return to the emergency department if you develop severe pain that is not controlled by pain medications or if you are unable to walk because of pain or weakness. Return to the emergency department immediately if you develop fevers, loss of bowel or bladder control (dribbling of urine or having accidents you wouldn't normally have), inability to urinate, numbness of your genital or anal area, or weakness/numbness of your legs or arms as these could all be signs of a serious medical emergency. Patient Language: Korean Prescriptions: New cephalexin 500 mg capsule 500 mg PO Q12H Qty: 14 0RF cyclobenzaprine 10 mg tablet 10 mg PO TID PRN (Reason: muscle spasm) Qty: 20 0RF naproxen 375 mg tablet 375 mg PO BID Qty: 14 0RF No Action lisinopril-hydrochlorothiazide 20-12.5 mg tablet 1 tablet PO DAILY metformin 500 mg tablet 1 tablet PO BID multivitamin [Daily Multi-Vitamin] Tablet 1 tablet PO DAILY atorvastatin 10 mg tablet 10 mg PO HS apple cider vinegar 600 mg Capsule 600 mg PO DAILY Follow-up/Referrals: Danielle,MD José Luis [Primary Care Provider, Unknown] - 1 Week
== END 2024-10-22 08:57 | disposition home or self-care (01) ==
PROVIDERS: Student in an Organized Health Care Education/Training Program; Emergency Provider Emergency Medicine; PCP Internal Medicine
DX: S39.012A Strain of muscle, fascia and tendon of lower back, initial encounter (principal); N39.0 Urinary tract infection, site not specified; I10 Essential (primary) hypertension; X50.0XXA Overexertion from strenuous movement or load, initial encounter
CPT/HCPCS: 72100; 81001; 81025; 99283